=== PATIENT | male | born 1980 | race African-American/Black ===

== ENCOUNTER 2019-09-29 13:10 | Inpatient (IN) | payer OTHER ==
[2019-09-29 15:07] VITALS: BMI 26.4
--- NOTE | 2019-09-29 16:14 | BHS.RME ---
Substance Use & Tx History - Substance Use History Alcohol Substance amount: Vodka- 2 pints beer-8 25 oz cans Frequency of use: Daily Substance route: Oral Date of Last Use: 09/29/19 Cannabis Substance amount: $20 Frequency of use: Daily Substance route: Smoking Date of Last Use: 09/29/19 - Last Treatment Date of last treatment: 1st time here Physical/Psych/Mental Status - Behavior General Behavior: Decreased activity Eye Contact: Normal Other Behaviors: Mannerisms - Cooperativeness Cooperativeness: Cooperative - Thinking Thought Processes: Logical Thought content: Future oriented - Physical Health Problems Is patient presently having any pain?: Yes Does patient presently have any injuries (include location): No Does patient currently have a fever: No CIWA Nausea/Vomitin Muscle Tremors: 1-None Visible, but [place] Anxiety: 1-Mildly Anxious Agitation: 1-Slight > Activity Paroxysmal Sweats: 2 Orientation: 0-Oriented Tacttile Disturbances: 1-Very Mild Itch/Numbness Auditory Disturbances: 1-Very Mild Visual Disturbances: 1-Very Mild Sensitivity Headache: 2-Mild CIWA-Ar Total Score: 13
--- NOTE | 2019-09-29 16:20 | HP ---
CIWA Score Nausea/Vomitin Muscle Tremors: 1-None Visible, but [place] Anxiety: 1-Mildly Anxious Agitation: 1-Slight > Activity Paroxysmal Sweats: 2 Orientation: 0-Oriented Tacttile Disturbances: 1-Very Mild Itch/Numbness Auditory Disturbances: 1-Very Mild Visual Disturbances: 1-Very Mild Sensitivity Headache: 2-Mild CIWA-Ar Total Score: 13 - Admission Criteria OASAS Guidelines: Admission for Medically Managed Detox: Requires at least one of the followin. CIWA greater than 12 2. Seizures within the past 24 hours 3. Delirium tremens within the past 24 hours 4. Hallucinations within the past 24 hours 5. Acute intervention needed for co occurring medical disorder 6. Acute intervention needed for co occurring psychiatric disorder 7. Severe withdrawal that cannot be handled at a lower level of care (continued vomiting, continued diarrhea, abnormal vital signs) requiring intravenous medication and/or fluids 8. Patient presents the following: CIWA greater than 12 Admission Criteria Met: Admission criteria met Admission ROS [facility] Chief Complaint: I need detox from alcohol Allergies/Adverse Reactions: Allergies Allergy/AdvReac Type Severity Reaction Status Date / Time No Known Allergies Allergy Verified 09/29/19 16:37 History of Present Illness: 39 year old man, 1st time in detox here presents for alcohol detox, he reports treatment about 7 years ago. He reports blackouts, last episode was 2 nights ago, he denies seizures. 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 Loss EENT: reports: No Symptoms Reported Respiratory: reports: No Symptoms reported Cardiac: reports: Lightheadedness GI: reports: Diarrhea, Nausea, Poor Appetite, Poor Fluid Intake, Abdominal cramping : reports: No Symptoms Reported Musculoskeletal: reports: Back Pain, Muscle Pain, Muscle Weakness Integumentary: reports: Sweating Neuro: reports: Headache, Numbness, Weakness, Unsteady Gait, Other (left sided weakness) Endocrine: reports: No Symptoms Reported Hematology: reports: No Symptoms Reported Psychiatric: reports: No Sypmtoms Reported Other Systems: Reviewed and Negative Patient History - Patient Medical History Hx Anemia: No Hx Asthma: No Hx Chronic Obstructive Pulmonary Disease (COPD): No Hx Cancer: No Hx Cardiac Disorders: No Hx Congestive Heart Failure: No Hx Hypertension: Yes (on medication) Hx Hypercholesterolemia: Yes (") Hx Pacemaker: No HX Cerebrovascular Accident: Yes (9 years ago with residual left sided weakness) Hx Seizures: No Hx Dementia: No Hx Diabetes: No Hx Gastrointestinal Disorders: No Hx Liver Disease: No Hx Genitourinary Disorders: No Hx Sexually Transmitted Disorders: No Hx Renal Disease (ESRD): No Hx Thyroid Disease: No Hx Human Immunodeficiency Virus (HIV): No Hx Hepatitis C: No Hx Depression: No Hx Suicide Attempt: No Hx Bipolar Disorder: No Hx Schizophrenia: No - Patient Surgical History Past Surgical History: No - PPD History Previous Implant?: Yes Documented Results: Negative w/o proof Implanted On Prior [facility] Admission?: No PPD to be Administered?: Yes - Smoking Cessation Smoking history: Current every day smoker Have you smoked in the past 12 months: Yes Aproximately how many cigarettes per day: 8 Hx Chewing Tobacco Use: No Initiated information on smoking cessation: Yes 'Breaking Loose' booklet given: 09/29/19 - Substances abused Alcohol Substance route: Oral Frequency: Daily Amount used: VODKA- 2-3 PTS VODKA Age of first use: 15 Date of last use: 09/29/19 Admission Physical Exam BHS - Vital Signs Vital Signs: Vital Signs - 24 hr 09/29/19 15:05 Temperature 97.5 F L Pulse Rate 94 H Respiratory 18 Rate - Physical General Appearance: Yes: No Apparent Distress HEENTM: Yes: Hearing grossly Normal, Normocephalic, Normal Voice, INES Respiratory: Yes: Chest Non-Tender, Lungs Clear, Normal Breath Sounds, No Respiratory Distress, No Accessory Muscle Use Neck: Yes: No masses,lesions,Nodules, Supple Breast: Yes: Breast Exam Deferred Cardiology: Yes: Regular Rhythm, Regular Rate Abdominal: Yes: Normal Bowel Sounds, Non Tender, Soft Genitourinary: Yes: Within Normal Limits Back: Yes: Normal Inspection Musculoskeletal: Yes: Muscle Pain, Muscle weakness Extremities: Yes: Tremors (mild) Neurological: Yes: Normal Mood/Affect, Normal Response Integumentary: Yes: Normal Color Lymphatic: Yes: Within Normal Limits - Diagnostic (1) Alcohol dependence with withdrawal Current Visit: Yes Status: Acute Qualifiers: Complication of substance-induced condition: uncomplicated Qualified Code(s): F10.230 - Alcohol dependence with withdrawal, uncomplicated (2) Nicotine dependence Current Visit: Yes Status: Acute Qualifiers: Nicotine product type: cigarettes Substance use status: uncomplicated Qualified Code(s): F17.210 - Nicotine dependence, cigarettes, uncomplicated (3) Cerebrovascular accident (CVA) with left hemiparesis Current Visit: Yes Status: Chronic (4) Hypertension Current Visit: Yes Status: Acute Qualifiers: Hypertension type: essential hypertension Qualified Code(s): I10 - Essential (primary) hypertension Cleared for Admission [facility] - Detox or Rehab S Level of Care: Medically Managed () Detox Regimen/Protocol: Librium Claeared for Rehab Admission: No Breathalyzer - Breathalyzer Breathalyzer: 0.122 Urine Drug Screen - Test Device Lot number: [id number] Expiration date: 05/29/21 - Control Is test valid?: Yes - Results Drug screen NEGATIVE: No Urine drug screen results: THC-Marijuana Inpatient Rehab Admission - Rehab Decision to Admit Inpatient rehab admission?: No
[2019-09-29] MEDS ORDERED: IBUPROFEN 400 MG TABLET (FP) PO PRN (16:26)
[2019-09-29] MEDS ORDERED: MAG HYDROX/AL HYDROX/SIMETH 30 ML UNIT-DOSE CUP PO PRN (16:26)
[2019-09-29] MEDS ORDERED: ACETAMINOPHEN 325 MG TABLET (FP) PO PRN ×2 (16:26)
[2019-09-29] MEDS ORDERED: ONDANSETRON *ODT* 4 MG TABLET SL ONE (16:26)
[2019-09-29] MEDS ORDERED: MAGNESIUM CITRATE 300 ML BOTTLE PO PRN (16:26)
[2019-09-29] MEDS ORDERED: NICOTINE POLACRILEX 2 MG GUM BUC PRN (16:26)
[2019-09-29] MEDS ORDERED: BISMUTH SUBSALICYLATE 524 MG/30 ML UD PO PRN (16:26)
[2019-09-29] MEDS ORDERED: MAGNESIUM HYDROX 2400MG/30ML ORAL SUSPENSION 30 ML CUP PO PRN (16:26)
[2019-09-29] MEDS ORDERED: METHOCARBAMOL 500 MG TABLET PO PRN (16:26)
[2019-09-29] MEDS ORDERED: MENTHOL/PHENOL 1 EACH UD MM PRN (16:26)
[2019-09-29] MEDS: LOSARTAN POTASSIUM 50 MG TABLET (FP) PO SCH (17:26)
[2019-09-29] MEDS: hydrOXYzine PAMOATE 25 MG CAPSULE (FP) PO SCH ×2 (17:26→22:26)
[2019-09-29] MEDS: chlordiazePOXIDE HCL 10 MG CAPSULE PO PRN (17:27)
[2019-09-29] MEDS: MELATONIN 5 MG TABLETS PO SCH (22:26)
[2019-09-29] MEDS: ATORVASTATIN CA 40 MG TABLET (FP) PO SCH (22:26)
[2019-09-29] MEDS: THIAMINE HCL 100 MG TABLET (FP) PO SCH (22:26)
[2019-09-29] MEDS: chlordiazePOXIDE HCL 25 MG CAPSULE PO SCH (22:26)
[2019-09-30] MEDS: chlordiazePOXIDE HCL 25 MG CAPSULE PO SCH ×3 (05:47→22:10)
[2019-09-30] MEDS: hydrOXYzine PAMOATE 25 MG CAPSULE (FP) PO SCH ×2 (05:47→10:29)
[2019-09-30] MEDS ORDERED: cloNIDine HCL 0.1 MG TABLET PO ONE ×2 (07:42→21:30)
[2019-09-30] MEDS: ASPIRIN 81 MG CHEWABLE TABLETS PO SCH (10:28)
[2019-09-30] MEDS: NICOTINE 7 MG/24 HOURS TOPICAL PATCH TD SCH (10:29)
[2019-09-30] MEDS: LOSARTAN POTASSIUM 50 MG TABLET (FP) PO SCH (10:29)
[2019-09-30] MEDS: PRENATAL VITAMINS W/ FOLIC ACID TABLET (FP) PO SCH (10:29)
--- NOTE | 2019-09-30 10:52 | PN ---
S CIWA - CIWA Score Nausea/Vomitin-Mild Nausea/No Vomiting Muscle Tremors: 2 Anxiety: 2 Agitation: 1-Slight > Activity Paroxysmal Sweats: 2 Orientation: 0-Oriented Tacttile Disturbances: 0-None Auditory Disturbances: 0-None Visual Disturbances: 1-Very Mild Sensitivity Headache: 1-Very Mild CIWA-Ar Total Score: 10 S Progress Note (SOAP) Subjective: 39 years old male admitted on 09/29/19 for alcohol withdrawal sx management treating with librium detox regiment ambulating with cane slow steady from bed to bathroom medical history of hypertension Vital Signs - 24 hr 09/29/19 09/29/19 09/29/19 15:05 16:54 18:38 Temperature 97.5 F L 97.5 F L Pulse Rate 94 H 94 H 91 H Respiratory 18 18 Rate Blood Pressure 159/118 H 134/94 O2 Sat by Pulse Oximetry (%) 09/29/19 09/29/19 09/30/19 20:40 23:33 05:37 Temperature 97.1 F L 96.8 F L Pulse Rate 91 H 77 75 Respiratory 16 20 Rate Blood Pressure 151/100 142/100 150/120 H O2 Sat by Pulse 99 100 Oximetry (%) 09/30/19 09/30/19 08:03 08:32 Temperature 97.5 F L Pulse Rate 78 73 Respiratory 20 18 Rate Blood Pressure 177/121 H 155/120 H O2 Sat by Pulse Oximetry (%) bp elevation add hctz 25 mg po Objective: 09/30/19 10:58 alcohol withdrawal lab pending Assessment: 09/30/19 10:58 alcohol withdrawal Plan: librium regiment
[2019-09-30] MEDS ORDERED: LOSARTAN POTASSIUM 50 MG TABLET (FP) PO SCH (10:53)
[2019-09-30 11:32] LABS: HEMATOCRIT 47.5 % (35.4-49); HEMOGLOBIN 15.3 GM/dL (11.7-16.9); MCH 29.1 pg (25.7-33.7); MCHC 32.2 g/dl (32.0-35.9); MEAN CELL VOLUME 90.3 fl (80-96); PLATELET COUNT 142 K/MM3 (134-434); RBC 5.26 M/mm3 (4.00-5.60); RDW 14.5 % (11.9-15.9); WHITE BLOOD COUNT 3.8 K/mm3 (4.0-10.0)
[2019-09-30 11:33] LABS: ALBUMIN 3.5 g/dl (3.4-5.0); BILIRUBIN,TOTAL 0.3 mg/dL (0.2-1); BLOOD UREA NITROGEN 17.5 mg/dL (7-18); CALCIUM 9.1 mg/dL (8.5-10.1); CREATININE 1.5 mg/dL (0.55-1.3); POTASSIUM 3.9 mmol/L (3.5-5.1); TOT PROT 6.9 g/dl (6.4-8.2)
[2019-09-30] MEDS: HYDROCHLOROTHIAZIDE 25 MG TABLET (FP) PO SCH (12:11)
[2019-09-30] MEDS ORDERED: hydrOXYzine PAMOATE 25 MG CAPSULE (FP) PO PRN (13:35)
[2019-09-30] MEDS: THIAMINE HCL 100 MG TABLET (FP) PO SCH (22:08)
[2019-09-30] MEDS: ATORVASTATIN CA 40 MG TABLET (FP) PO SCH (22:10)
[2019-09-30] MEDS: MELATONIN 5 MG TABLETS PO SCH (22:10)
[2019-10-01] MEDS: chlordiazePOXIDE 5 MG CAPSULE PO SCH ×3 (05:51→21:10)
[2019-10-01] MEDS ORDERED: LISINOPRIL 20 MG TABLET (FP) PO ONE (07:15)
--- NOTE | 2019-10-01 07:16 | PN ---
[facility] Progress Note Note: SEEN FOR UNCONTROLLED BP. CLIENT IS ASYMPTOMATIC. DENIES SOB, C.P., WEAKNESS, NUMBNESS, VISUAL DISTURBANCES, HEADACHE. CLIENT REPORTS HE TAKES LOSARTAN AT HOME BUT DOES NOT RECALL DOSE. STATES PRIOR TO ADMISSION IS HAS BEEN A WEEK SINCE HE TOOK THE MEDICATION BECAUSE HE RAN OUT. REPORTS COMPLIANCE AND REPORTS B/P HAS BEEN FINE. LAST SEEN AT HIS DOCTORS OFFICE 3 WEEKS AGO AND WAS TOLD HIS BP WAS GOOD. CLIENT SEEN IN BED LYING COMFORTABLY. A/O X3 NAD, NO ACUTE WITHDRAWAL SX'S NOTED Vital Signs (72 hours) 09/29/19 09/29/19 09/29/19 15:05 16:54 18:38 Temperature 97.5 F L 97.5 F L Pulse Rate 94 H 94 H 91 H Respiratory 18 18 Rate Blood Pressure 159/118 H 134/94 O2 Sat by Pulse Oximetry (%) 09/29/19 09/29/19 09/30/19 20:40 23:33 05:37 Temperature 97.1 F L 96.8 F L Pulse Rate 91 H 77 75 Respiratory 16 20 Rate Blood Pressure 151/100 142/100 150/120 H O2 Sat by Pulse 99 100 Oximetry (%) 09/30/19 09/30/19 09/30/19 08:03 08:32 12:10 Temperature 97.5 F L 96.9 F L Pulse Rate 78 73 71 Respiratory 20 18 18 Rate Blood Pressure 177/121 H 155/120 H 149/94 O2 Sat by Pulse 100 Oximetry (%) 09/30/19 09/30/19 09/30/19 16:44 20:53 23:09 Temperature 97.1 F L 97.5 F L Pulse Rate 72 84 81 Respiratory 18 16 16 Rate Blood Pressure 148/99 155/113 H 149/104 H O2 Sat by Pulse 96 Oximetry (%) VS NOTED. PATIENT HAS RECEIVED SEVERAL DOSES OF CLONIDINE WITH MINIMAL RESPONSE. EKG NOTED WITH LVH W/ REPOLARIZATION ABN, NSR, L ATRIAL ENLARGEMENT, PROLONGED QT- 422/507 P- 39 Y.O. AA MALE ADMITTED TO DETOX ON 09/29/19 FOR ALCOHOL DETOX. ON LIBRIUM TAPER, PMHX, HTN, OLD CVA WITH LEFT SIDED HEMIPARESIS REPEAT EKG- NSR, LEFT ATRIAL ENLARGEMENT, INCOMPLETE [id number] BPM, LVH, MARKED T WAVE ABN, CONSIDER INFEROLATERAL ISCHEMIA, PROLONGED QT/QTC 462/505 CASE D/W DR.LIU- AZEEM GONZALES. WILL TRANSFER CLIENT FOR CHANGES IN EKG
--- NOTE | 2019-10-01 09:24 | EKG ---
Test Reason : Blood Pressure : / mmHG Vent. Rate : 072 BPM Atrial Rate : 072 BPM P-R Int : 166 ms QRS Dur : 112 ms QT Int : 462 ms P-R-T Axes : 046 027 220 degrees QTc Int : 505 ms NORMAL SINUS RHYTHM POSSIBLE LEFT ATRIAL ENLARGEMENT LEFT VENTRICULAR HYPERTROPHY with repolarization abnormality, MARKED T-WAVE ABNORMALITY, CONSIDER INFEROLATERAL ISCHEMIA PROLONGED QT ABNORMAL ECG WHEN COMPARED WITH ECG OF 29-SEP-2019 17:30, NO SIGNIFICANT CHANGE WAS FOUND Confirmed by Neeru Olivo ([id number]) on 10/01/2019 9:24:16 AM Referred By: Confirmed By:Neeru Olivo
--- NOTE | 2019-10-01 09:25 | EKG ---
Test Reason : Blood Pressure : / mmHG Vent. Rate : 087 BPM Atrial Rate : 087 BPM P-R Int : 168 ms QRS Dur : 110 ms QT Int : 422 ms P-R-T Axes : 045 026 225 degrees QTc Int : 507 ms NORMAL SINUS RHYTHM LEFT ATRIAL ENLARGEMENT LEFT VENTRICULAR HYPERTROPHY WITH REPOLARIZATION ABNORMALITY Consider inferolateral ischemia PROLONGED QT ABNORMAL ECG NO PREVIOUS ECGS AVAILABLE Confirmed by Neeru Olivo ([id number]) on 10/01/2019 9:25:37 AM Referred By: Confirmed By:Neeru Olivo
[2019-10-01] MEDS: HYDROCHLOROTHIAZIDE 25 MG TABLET (FP) PO SCH (09:57)
[2019-10-01] MEDS: NICOTINE 7 MG/24 HOURS TOPICAL PATCH TD SCH (09:57)
[2019-10-01] MEDS: ASPIRIN 81 MG CHEWABLE TABLETS PO SCH (09:57)
[2019-10-01] MEDS: PRENATAL VITAMINS W/ FOLIC ACID TABLET (FP) PO SCH (09:58)
--- NOTE | 2019-10-01 12:24 | PN ---
S Progress Note Note: 39 years old male admitted on 09/29/19 for alcohol withdrawal sx management treating with librium detox regiment transferred to ER for ekg change review ER electronic record Mr hayes is possible returned to [facility] today due to negative troponin
[2019-10-01] MEDS ORDERED: METOPROLOL TARTRATE 50 MG TABLET (FP) PO ONE ×2 (15:47→17:37)
[2019-10-01] MEDS: chlordiazePOXIDE HCL 10 MG CAPSULE PO PRN (17:26)
--- NOTE | 2019-10-01 17:36 | PN ---
S Progress Note Note: called by nursing for elevated BP Vital Signs - 24 hr 09/30/19 09/30/19 10/01/19 20:53 23:09 07:32 Temperature 97.5 F L 97.1 F L Pulse Rate 84 81 82 Respiratory 16 16 18 Rate Blood Pressure 155/113 H 149/104 H 147/117 H O2 Sat by Pulse 96 100 Oximetry (%) 10/01/19 10/01/19 12:45 16:17 Temperature 96.9 F L 97.1 F L Pulse Rate 87 90 Respiratory 18 18 Rate Blood Pressure 152/118 H 165/115 H O2 Sat by Pulse 99 99 Oximetry (%) P : Metoprolol 25 mg once .
[2019-10-01] MEDS: THIAMINE HCL 100 MG TABLET (FP) PO SCH (21:09)
[2019-10-01] MEDS: METOPROLOL TARTRATE 50 MG TABLET (FP) PO SCH (21:09)
[2019-10-01] MEDS: ATORVASTATIN CA 40 MG TABLET (FP) PO SCH (21:09)
[2019-10-01] MEDS: MELATONIN 5 MG TABLETS PO SCH (21:09)
[2019-10-02] MEDS ORDERED: chlordiazePOXIDE HCL 10 MG CAPSULE PO PRN
[2019-10-02] MEDS: chlordiazePOXIDE HCL 10 MG CAPSULE PO SCH ×3 (05:33→21:06)
[2019-10-02] MEDS: LOSARTAN POTASSIUM 50 MG TABLET (FP) PO SCH (07:33)
--- NOTE | 2019-10-02 08:28 | PN ---
[facility] Progress Note Note: Patient's blood pressure is still elevated. Patient was evaluated in E.R. for elevated blood pressure. He is asymptomatic and denies headache or any discomfort. Vital Signs - 24 hr 10/01/19 10/01/19 10/01/19 12:45 16:17 20:18 Temperature 96.9 F L 97.1 F L 97.3 F L Pulse Rate 87 90 85 Respiratory 18 18 18 Rate Blood Pressure 152/118 H 165/115 H 172/117 H O2 Sat by Pulse 99 99 100 Oximetry (%) 10/01/19 10/02/19 22:38 06:16 Temperature 97.7 F 96.9 F L Pulse Rate 76 70 Respiratory 18 18 Rate Blood Pressure 156/107 H 144/100 O2 Sat by Pulse 100 Oximetry (%) Action: Losartan Pottasium 100mg tablet oral changed from 10.00AM to 06.00AM Continue to monitor blood pressure
[2019-10-02] MEDS: METOPROLOL TARTRATE 50 MG TABLET (FP) PO SCH ×2 (10:38→21:05)
[2019-10-02] MEDS: PRENATAL VITAMINS W/ FOLIC ACID TABLET (FP) PO SCH (10:38)
[2019-10-02] MEDS: HYDROCHLOROTHIAZIDE 25 MG TABLET (FP) PO SCH (10:38)
[2019-10-02] MEDS: ASPIRIN 81 MG CHEWABLE TABLETS PO SCH (10:38)
[2019-10-02] MEDS: NICOTINE 7 MG/24 HOURS TOPICAL PATCH TD SCH (10:41)
--- NOTE | 2019-10-02 13:49 | PN ---
S CIWA - CIWA Score Nausea/Vomitin-Mild Nausea/No Vomiting Muscle Tremors: 2 Anxiety: 2 Agitation: 1-Slight > Activity Paroxysmal Sweats: 1-Minimal Palms Moist Orientation: 0-Oriented Tacttile Disturbances: 1-Very Mild Itch/Numbness Auditory Disturbances: 0-None Visual Disturbances: 0-None Headache: 0-None Present CIWA-Ar Total Score: 8
--- NOTE | 2019-10-02 13:54 | PN ---
S CIWA - CIWA Score Nausea/Vomitin-No Nausea/No Vomiting Muscle Tremors: 2 Anxiety: 2 Agitation: 0-Normal Activity Paroxysmal Sweats: No Perspiration Orientation: 0-Oriented Tacttile Disturbances: 0-None Auditory Disturbances: 0-None Visual Disturbances: 2-Mild Sensitivity Headache: 0-None Present CIWA-Ar Total Score: 6 BHS Progress Note (SOAP) Subjective: 39 years old male admitted on 09/30/19 for alcohol withdrawal sx management treating with librium detox regiment states has long history of hypertension stroke 2010 left arm weakness Vital Signs - 24 hr 10/01/19 10/01/19 10/01/19 16:17 20:18 22:38 Temperature 97.1 F L 97.3 F L 97.7 F Pulse Rate 90 85 76 Respiratory 18 18 18 Rate Blood Pressure 165/115 H 172/117 H 156/107 H O2 Sat by Pulse 99 100 Oximetry (%) 10/02/19 10/02/19 10/02/19 06:16 09:02 12:44 Temperature 96.9 F L 97.3 F L 97.3 F L Pulse Rate 70 70 73 Respiratory 18 18 18 Rate Blood Pressure 144/100 148/105 H 135/82 O2 Sat by Pulse 100 100 100 Oximetry (%) current antihypertensive medications are losartan hctz and metoprolol mr hayes prefers to go to [facility] for continue bp monitoring Objective: 10/02/19 13:53 Laboratory Tests 09/29/19 09/30/19 09/30/19 17:00 06:50 06:50 WBC RBC Hgb Hct MCV MCH MCHC RDW Plt Count MPV Sodium Potassium Chloride Carbon Dioxide Anion Gap BUN Creatinine Est GFR (CKD-EPI)AfAm Est GFR (CKD-EPI)NonAf Random Glucose Calcium Total Bilirubin AST ALT Alkaline Phosphatase Total Protein Albumin Syphilis Serology Non-reactive COVID-19 ([facility]) Not detected HIV Ag/Ab Combo Qual Negative 09/30/19 09/30/19 06:50 06:50 WBC 3.8 L RBC 5.26 Hgb 15.3 Hct 47.5 MCV 90.3 MCH 29.1 MCHC 32.2 RDW 14.5 Plt Count 142 MPV 11.0 Sodium 143 Potassium 3.9 Chloride 108 H Carbon Dioxide 31 Anion Gap 4 L BUN 17.5 Creatinine 1.5 H Est GFR (CKD-EPI)AfAm 66.54 Est GFR (CKD-EPI)NonAf 57.41 Random Glucose 91 Calcium 9.1 Total Bilirubin 0.3 AST 22 ALT 25 Alkaline Phosphatase 61 Total Protein 6.9 Albumin 3.5 Syphilis Serology COVID-19 ([facility]) HIV Ag/Ab Combo Qual lab noted Assessment: 10/02/19 13:53 alcohol withdrawal Plan: librium regiment
[2019-10-02] MEDS: MELATONIN 5 MG TABLETS PO SCH (21:04)
[2019-10-02] MEDS: ATORVASTATIN CA 40 MG TABLET (FP) PO SCH (21:05)
[2019-10-02] MEDS: THIAMINE HCL 100 MG TABLET (FP) PO SCH (21:05)
[2019-10-03] MEDS ORDERED: chlordiazePOXIDE HCL 10 MG CAPSULE PO ONE (05:00)
[2019-10-03] MEDS: LOSARTAN POTASSIUM 50 MG TABLET (FP) PO SCH (05:38)
[2019-10-03 09:12] VITALS: BP 152/108; PULSE 75; TEMP 97.2
[2019-10-03] MEDS: ASPIRIN 81 MG CHEWABLE TABLETS PO SCH (09:14)
[2019-10-03] MEDS: METOPROLOL TARTRATE 50 MG TABLET (FP) PO SCH (09:14)
[2019-10-03] MEDS: PRENATAL VITAMINS W/ FOLIC ACID TABLET (FP) PO SCH (09:14)
[2019-10-03] MEDS: HYDROCHLOROTHIAZIDE 25 MG TABLET (FP) PO SCH (09:15)
[2019-10-03] MEDS: NICOTINE 7 MG/24 HOURS TOPICAL PATCH TD SCH (09:34)
--- NOTE | 2019-10-03 10:44 | DS ---
[facility] Detox Discharge Summary Admission Date: 09/29/19 Discharge Date: 10/03/19 - History Present History: Alcohol Dependence Additional Comments: 39 years old male admitted on 09/29/19 for alcohol withdrawal sx management treated with librium detox regiment medical history of hypertension related stroke 2009 resulted of left arm weakness father of "heart attack" age around 54 mr hayes was sent to ER for hypertension returned to detox bp managed by losartan hctz and metoprolol mr hayes has completed the librium regiment and is tolerated well General Appearance: Yes: No Apparent Distress HEENTM: Yes: Hearing grossly Normal, Normocephalic, Normal Voice, INES Respiratory: Yes: Chest Non-Tender, Lungs Clear, Normal Breath Sounds, No Respiratory Distress, No Accessory Muscle Use Neck: Yes: No masses,lesions,Nodules, Supple Breast: Yes: Breast Exam Deferred Cardiology: Yes: Regular Rhythm, Regular Rate Abdominal: Yes: Normal Bowel Sounds, Non Tender, Soft Genitourinary: Yes: Within Normal Limits Back: Yes: Normal Inspection Musculoskeletal: Yes: Muscle Pain, Muscle weakness Extremities: Yes: Tremors (mild) Neurological: Yes: Normal Mood/Affect, Normal Response Integumentary: Yes: Normal Color Lymphatic: Yes: Within Normal Limits Pertinent Past History: time for discharge 45 minutes treatment team met with mr hayes to discuss the risks of bp elevation and benefits of antihypertensive medications compliance mr hayes received losartan around 0530am around 0850 am mr hayes bp 152/108 aroound 0915 mr hayes received hctz and metoprolol encourage repeat bp mr hayes states that he will check his blood pressure at home or at [facility] or at the pharmacy - Physical Exam Results Vital Signs: Vital Signs Temperature 97.2 F L 10/03/19 08:32 Pulse Rate 75 10/03/19 08:32 Respiratory Rate 18 10/03/19 08:32 Blood Pressure 152/108 H 10/03/19 08:32 O2 Sat by Pulse Oximetry (%) 100 10/03/19 08:32 Pertinent Admission Physical Exam Findings: alcohol withdrawal Vital Signs - 24 hr 10/02/19 10/02/19 10/02/19 12:44 16:29 20:45 Temperature 97.3 F L 96.9 F L 96.8 F L Pulse Rate 73 76 80 Respiratory 18 18 19 Rate Blood Pressure 135/82 147/106 H 166/118 H O2 Sat by Pulse 100 100 Oximetry (%) 10/02/19 10/03/19 10/03/19 23:15 05:45 08:32 Temperature 97.1 F L 97.2 F L Pulse Rate 72 71 75 Respiratory 18 20 18 Rate Blood Pressure 142/93 118/87 152/108 H O2 Sat by Pulse 100 100 Oximetry (%) Laboratory Tests 09/29/19 09/30/19 09/30/19 17:00 06:50 06:50 WBC RBC Hgb Hct MCV MCH MCHC RDW Plt Count MPV Sodium Potassium Chloride Carbon Dioxide Anion Gap BUN Creatinine Est GFR (CKD-EPI)AfAm Est GFR (CKD-EPI)NonAf Random Glucose Calcium Total Bilirubin AST ALT Alkaline Phosphatase Total Protein Albumin Syphilis Serology Non-reactive COVID-19 ([facility]) Not detected HIV Ag/Ab Combo Qual Negative 09/30/19 09/30/19 06:50 06:50 WBC 3.8 L RBC 5.26 Hgb 15.3 Hct 47.5 MCV 90.3 MCH 29.1 MCHC 32.2 RDW 14.5 Plt Count 142 MPV 11.0 Sodium 143 Potassium 3.9 Chloride 108 H Carbon Dioxide 31 Anion Gap 4 L BUN 17.5 Creatinine 1.5 H Est GFR (CKD-EPI)AfAm 66.54 Est GFR (CKD-EPI)NonAf 57.41 Random Glucose 91 Calcium 9.1 Total Bilirubin 0.3 AST 22 ALT 25 Alkaline Phosphatase 61 Total Protein 6.9 Albumin 3.5 Syphilis Serology COVID-19 ([facility]) HIV Ag/Ab Combo Qual mr hayes has appointment on 10/04/19 10 am with [facility] encourage freddy to [facility] solution maker medications from preferred pharmacy and bp monitoring daily - Treatment Hospital Course: Detox Protocol Followed, Detoxed Safely, Responded well, Discharged Condition Good, Rehab Referral Accepted Patient has Accepted a Rehab Referral to: [facility] - Medication Discharge Medications: Ambulatory Orders Aspirin [ASA -] 81 mg PO DAILY 09/29/19 Aspirin [ASA -] 81 mg PO DAILY #30 tab.chew 10/03/19 Atorvastatin Ca [Lipitor] 40 mg PO HS #30 tablet 10/03/19 Hydrochlorothiazide [Hctz -] 25 mg PO DAILY #30 tablet 10/03/19 Losartan Potassium 100 mg PO DAILY #30 tablet 10/03/19 Losartan Potassium [Cozaar -] 100 mg PO DAILY@0600 #30 tablet 10/03/19 Metoprolol Tartrate [Lopressor -] 50 mg PO BID #60 tablet 10/03/19 - Diagnosis (1) Left arm weakness Status: Chronic (2) Alcohol dependence with withdrawal Status: Acute Qualifiers: Complication of substance-induced condition: uncomplicated Qualified Code(s): F10.230 - Alcohol dependence with withdrawal, uncomplicated (3) Hypertension Status: Chronic Qualifiers: Hypertension type: essential hypertension Qualified Code(s): I10 - Essential (primary) hypertension (4) Nicotine dependence Status: Acute Qualifiers: Nicotine product type: cigarettes Substance use status: in withdrawal Qualified Code(s): F17.213 - Nicotine dependence, cigarettes, with withdrawal (5) Substance induced mood disorder Status: Suspected (6) Hypercholesterolemia Status: Chronic - AMA Did Patient Leave Against Medical Advice: No CIWA Score - CIWA Score Nausea/Vomitin-No Nausea/No Vomiting Muscle Tremors: 2 Anxiety: 1-Mildly Anxious Agitation: 0-Normal Activity Paroxysmal Sweats: No Perspiration Orientation: 0-Oriented Tacttile Disturbances: 0-None Auditory Disturbances: 0-None Visual Disturbances: 0-None Headache: 0-None Present CIWA-Ar Total Score: 3
== END 2019-10-03 09:22 | disposition home or self-care (01) | DRG 897 ==
LOC: YASAS 13:10 → Y3N 16:34
PROVIDERS: ADMIT Allergy & Immunology; ATTEND Allergy & Immunology
PROC: HZ2ZZZZ Detoxification Services for Substance Abuse Treatment (ICD-10-PCS; principal; 2019-09-29)
DX: F10.230 Alcohol dependence with withdrawal, uncomplicated (principal); I69.354 Hemiplegia and hemiparesis following cerebral infarction affecting left non-dominant side; F17.213 Nicotine dependence, cigarettes, with withdrawal; F19.24 Other psychoactive substance dependence with psychoactive substance-induced mood disorder; I10 Essential (primary) hypertension; E78.00 Pure hypercholesterolemia, unspecified; I45.81 Long QT syndrome; I44.7 Left bundle-branch block, unspecified; I51.7 Cardiomegaly
CPT/HCPCS: 36415; 71046-TC-FY; 80053; 84484; 85025; 85027; 86780; 87389; 93005; 93010; 99285-25; J0735; Q0162; U0003

== ENCOUNTER 2020-07-17 15:17 | Inpatient (IN) | payer OTHER ==
[2020-07-17 16:07] VITALS: BMI 26.6
[2020-07-17] MEDS ORDERED: chlordiazePOXIDE HCL 25 MG CAPSULE PO SCH (17:00)
[2020-07-17] MEDS ORDERED: ACETAMINOPHEN 325 MG TABLET (FP) PO PRN ×2 (17:06)
[2020-07-17] MEDS ORDERED: chlordiazePOXIDE HCL 25 MG CAPSULE PO PRN (17:06)
[2020-07-17] MEDS ORDERED: MAGNESIUM CITRATE 300 ML BOTTLE PO PRN (17:06)
[2020-07-17] MEDS ORDERED: MAG HYDROX/AL HYDROX/SIMETH 30 ML UNIT-DOSE CUP PO PRN (17:06)
[2020-07-17] MEDS ORDERED: METHOCARBAMOL 500 MG TABLET PO PRN (17:06)
[2020-07-17] MEDS ORDERED: IBUPROFEN 400 MG TABLET (FP) PO PRN (17:06)
[2020-07-17] MEDS ORDERED: MENTHOL/PHENOL 1 EACH UD MM PRN (17:06)
[2020-07-17] MEDS ORDERED: ONDANSETRON *ODT* 4 MG TABLET SL PRN (17:06)
[2020-07-17] MEDS ORDERED: MAGNESIUM HYDROX 2400MG/30ML ORAL SUSPENSION 30 ML CUP PO PRN (17:06)
[2020-07-17] MEDS ORDERED: BISMUTH SUBSALICYLATE 524 MG/30 ML PO PRN (17:06)
[2020-07-17] MEDS ORDERED: LORazepam 1 MG TABLET PO PRN (18:49)
[2020-07-17] MEDS: hydrOXYzine PAMOATE 25 MG CAPSULE (FP) PO SCH ×2 (19:01→22:32)
[2020-07-17] MEDS: MELATONIN 5 MG TABLETS PO SCH (22:32)
[2020-07-17] MEDS: THIAMINE HCL 100 MG TABLET (FP) PO SCH (22:32)
[2020-07-17] MEDS: LORazepam 2 MG TABLET PO SCH (22:33)
[2020-07-18] MEDS: hydrOXYzine PAMOATE 25 MG CAPSULE (FP) PO SCH ×5 (06:25→22:24)
[2020-07-18] MEDS: LORazepam 2 MG TABLET PO SCH ×4 (06:25→22:25)
[2020-07-18] MEDS ORDERED: cloNIDine HCL 0.1 MG TABLET PO ONE (07:45)
[2020-07-18] MEDS: ASPIRIN 81 MG CHEWABLE TABLETS PO SCH (10:28)
[2020-07-18] MEDS: PRENATAL VITAMINS W/ FOLIC ACID TABLET (FP) PO SCH (10:28)
[2020-07-18] MEDS: amLODIPine BESYLATE 10 MG TABLET (FP) PO SCH (10:28)
[2020-07-18 12:17] LABS: CALCIUM 9.2 mg/dL (8.5-10.1); HEMATOCRIT 49.3 % (35.4-49); HEMOGLOBIN 16.4 GM/dL (11.7-16.9); MCHC 33.3 g/dl (32.0-35.9); MEAN CELL VOLUME 90.1 fl (80-96); MEAN PLT VOLUME 9.8 fl (7.5-11.1); PLATELET COUNT 183 K/MM3 (134-434); RBC 5.47 M/mm3 (4.00-5.60); RDW 14.2 % (11.9-15.9); WHITE BLOOD COUNT 3.8 K/mm3 (4.0-10.0)
[2020-07-18 12:18] LABS: ALBUMIN 3.9 g/dl (3.4-5.0); BLOOD UREA NITROGEN 15.9 mg/dL (7-18)
[2020-07-18 12:21] LABS: CREATININE 1.1 mg/dL (0.55-1.3)
[2020-07-18 12:22] LABS: BILIRUBIN,TOTAL 0.5 mg/dL (0.2-1); TOT PROT 7.6 g/dl (6.4-8.2)
[2020-07-18] MEDS: NICOTINE POLACRILEX 2 MG GUM BUC PRN ×2 (17:44→22:27)
[2020-07-18] MEDS ORDERED: ATORVASTATIN CA 40 MG TABLET (FP) PO SCH (22:00)
[2020-07-18] MEDS: MELATONIN 5 MG TABLETS PO SCH (22:24)
[2020-07-18] MEDS: THIAMINE HCL 100 MG TABLET (FP) PO SCH (22:24)
[2020-07-19] MEDS ORDERED: chlordiazePOXIDE HCL 25 MG CAPSULE PO SCH (05:00)
[2020-07-19] MEDS: hydrOXYzine PAMOATE 25 MG CAPSULE (FP) PO SCH ×2 (05:35→10:27)
[2020-07-19] MEDS: LORazepam 1 MG TABLET PO SCH ×2 (05:35→10:26)
[2020-07-19 07:27] VITALS: TEMP 97
[2020-07-19] MEDS: PRENATAL VITAMINS W/ FOLIC ACID TABLET (FP) PO SCH (10:25)
[2020-07-19] MEDS: NICOTINE POLACRILEX 2 MG GUM BUC PRN (10:26)
[2020-07-19] MEDS: ASPIRIN 81 MG CHEWABLE TABLETS PO SCH (10:26)
[2020-07-19] MEDS: amLODIPine BESYLATE 10 MG TABLET (FP) PO SCH (10:27)
[2020-07-19 11:04] VITALS: BP 179/89; PULSE 64
[2020-07-20] MEDS ORDERED: LORazepam 0.5 MG TABLET PO PRN
[2020-07-20] MEDS ORDERED: chlordiazePOXIDE HCL 10 MG CAPSULE PO PRN
[2020-07-20] MEDS ORDERED: LORazepam 0.5 MG TABLET PO SCH (05:00)
[2020-07-20] MEDS ORDERED: chlordiazePOXIDE HCL 10 MG CAPSULE PO SCH (05:00)
[2020-07-21] MEDS ORDERED: LORazepam 0.5 MG TABLET PO ONE (05:00)
[2020-07-21] MEDS ORDERED: chlordiazePOXIDE HCL 10 MG CAPSULE PO SCH (05:00)
[2020-07-22] MEDS ORDERED: chlordiazePOXIDE HCL 10 MG CAPSULE PO ONE (05:00)
== END 2020-07-19 12:00 | disposition left against medical advice (07) | DRG 894 ==
LOC: YASAS 15:17 → Y6N 18:19
PROVIDERS: ADMIT Allergy & Immunology; ATTEND Allergy & Immunology
PROC: HZ2ZZZZ Detoxification Services for Substance Abuse Treatment (ICD-10-PCS; principal; 2020-07-17)
DX: F10.230 Alcohol dependence with withdrawal, uncomplicated (principal); I69.854 Hemiplegia and hemiparesis following other cerebrovascular disease affecting left non-dominant side; F12.20 Cannabis dependence, uncomplicated; F17.210 Nicotine dependence, cigarettes, uncomplicated; I11.0 Hypertensive heart disease with heart failure; I50.9 Heart failure, unspecified
CPT/HCPCS: 36415; 80053; 85027; 86780; 93005; 93010; C9803; J0735; U0003; U0005

== ENCOUNTER 2020-08-21 19:36 | Inpatient (IN) | payer OTHER ==
[2020-08-21] MEDS ORDERED: MAGNESIUM CITRATE 300 ML BOTTLE PO PRN (21:57)
[2020-08-21] MEDS ORDERED: MAG HYDROX/AL HYDROX/SIMETH 30 ML UNIT-DOSE CUP PO PRN (21:57)
[2020-08-21] MEDS ORDERED: P-EPHED 60MG/TRIPROLIDI 2.5MG TABLET PO PRN (21:57)
[2020-08-21] MEDS ORDERED: ONDANSETRON *ODT* 4 MG TABLET SL PRN (21:57)
[2020-08-21] MEDS ORDERED: ACETAMINOPHEN 325 MG TABLET (FP) PO PRN ×2 (21:57)
[2020-08-21] MEDS ORDERED: MENTHOL/PHENOL 1 EACH UD MM PRN (21:57)
[2020-08-21] MEDS ORDERED: hydrOXYzine PAMOATE 25 MG CAPSULE (FP) PO PRN (21:57)
[2020-08-21] MEDS ORDERED: DICYCLOMINE HCL 10 MG CAPSULE PO PRN (21:57)
[2020-08-21] MEDS ORDERED: METHOCARBAMOL 500 MG TABLET PO PRN (21:57)
[2020-08-21] MEDS ORDERED: MAGNESIUM HYDROX 2400MG/30ML ORAL SUSPENSION 30 ML CUP PO PRN (21:57)
[2020-08-21] MEDS ORDERED: guaiFENesin 200 MG/10 ML 10 ML UNIT-DOSE CUPS PO PRN (21:57)
[2020-08-21] MEDS ORDERED: BISMUTH SUBSALICYLATE 524 MG/30 ML PO PRN (21:57)
[2020-08-21] MEDS ORDERED: IBUPROFEN 400 MG TABLET (FP) PO PRN (21:57)
[2020-08-21] MEDS ORDERED: NICOTINE POLACRILEX 2 MG GUM BUC PRN (21:57)
[2020-08-21 22:45] VITALS: BMI 24.7
[2020-08-22] MEDS: THIAMINE HCL 100 MG TABLET (FP) PO SCH ×2 (00:17→22:20)
[2020-08-22] MEDS: MELATONIN 5 MG TABLETS PO SCH ×2 (00:17→22:20)
[2020-08-22] MEDS ORDERED: amLODIPine BESYLATE 5 MG TABLET (FP) ONE (05:53)
[2020-08-22] MEDS ORDERED: cloNIDine HCL 0.1 MG TABLET PO ONE ×2 (05:57→10:30)
[2020-08-22] MEDS ORDERED: cloNIDine HCL 0.1 MG TABLET ONE (06:05)
[2020-08-22] MEDS: amLODIPine BESYLATE 10 MG TABLET (FP) PO SCH ×2 (07:20→10:59)
[2020-08-22] MEDS ORDERED: diazePAM 5 MG TABLET ONE (08:14)
[2020-08-22] MEDS: diazePAM 5 MG TABLET PO SCH ×4 (08:17→22:20)
[2020-08-22 10:03] LABS: HEMATOCRIT 46.3 % (35.4-49); HEMOGLOBIN 15.5 GM/dL (11.7-16.9); MCH 29.6 pg (25.7-33.7); MCHC 33.5 g/dl (32.0-35.9); MEAN CELL VOLUME 88.4 fl (80-96); MEAN PLT VOLUME 9.2 fl (7.5-11.1); PLATELET COUNT 147 10^3/uL (134-434); RBC 5.24 M/mm3 (4.00-5.60); RDW 14.4 % (11.9-15.9); WHITE BLOOD COUNT 2.9 K/mm3 (4.0-10.0)
[2020-08-22 10:09] LABS: BLOOD UREA NITROGEN 6.1 mg/dL (7-18)
[2020-08-22 10:10] LABS: ALBUMIN 4.1 g/dl (3.4-5.0)
[2020-08-22 10:14] LABS: BILIRUBIN,TOTAL 0.8 mg/dL (0.2-1); TOT PROT 7.9 g/dl (6.4-8.2)
[2020-08-22 10:58] LABS: HIV INTERPRETATION NEGATIVE (NEGATIVE)
[2020-08-22] MEDS: ASPIRIN 81 MG CHEWABLE TABLETS PO SCH (10:59)
[2020-08-22] MEDS: PRENATAL VITAMINS W/ FOLIC ACID TABLET (FP) PO SCH (11:06)
[2020-08-22] MEDS: NICOTINE 14 MG/24 HOURS TOPICAL PATCH TD SCH (11:07)
[2020-08-22] MEDS ORDERED: ATORVASTATIN CA 40 MG TABLET (FP) PO SCH (22:00)
[2020-08-23] MEDS: diazePAM 5 MG TABLET PO SCH ×3 (05:19→22:08)
[2020-08-23] MEDS: amLODIPine BESYLATE 10 MG TABLET (FP) PO SCH (09:54)
[2020-08-23] MEDS: NICOTINE 14 MG/24 HOURS TOPICAL PATCH TD SCH (09:54)
[2020-08-23] MEDS: ASPIRIN 81 MG CHEWABLE TABLETS PO SCH (09:54)
[2020-08-23] MEDS: PRENATAL VITAMINS W/ FOLIC ACID TABLET (FP) PO SCH (09:55)
[2020-08-23] MEDS: SACUBITRIL/VALSARTAN 24 MG-26 MG TABLET PO SCH (13:48)
[2020-08-23] MEDS: CARVEDILOL 3.125 MG TABLET (FP) PO SCH ×2 (13:48→22:08)
[2020-08-23] MEDS: ROSUVASTATIN CA 20 MG TABLET (FP) PO SCH (22:08)
[2020-08-23] MEDS: THIAMINE HCL 100 MG TABLET (FP) PO SCH (22:08)
[2020-08-23] MEDS: MELATONIN 5 MG TABLETS PO SCH (22:09)
[2020-08-24] MEDS: diazePAM 5 MG TABLET PO SCH ×2 (05:34→17:20)
[2020-08-24] MEDS: ASPIRIN 81 MG CHEWABLE TABLETS PO SCH (09:14)
[2020-08-24] MEDS: NICOTINE 14 MG/24 HOURS TOPICAL PATCH TD SCH (09:14)
[2020-08-24] MEDS: CARVEDILOL 3.125 MG TABLET (FP) PO SCH ×2 (09:14→21:00)
[2020-08-24] MEDS: SACUBITRIL/VALSARTAN 24 MG-26 MG TABLET PO SCH (09:14)
[2020-08-24] MEDS: PRENATAL VITAMINS W/ FOLIC ACID TABLET (FP) PO SCH (09:14)
[2020-08-24] MEDS: amLODIPine BESYLATE 10 MG TABLET (FP) PO SCH (09:14)
[2020-08-24] MEDS: diazePAM 5 MG TABLET PO PRN ×2 (17:18→22:12)
[2020-08-24] MEDS ORDERED: MASKS NR ONE (20:41)
[2020-08-24] MEDS: THIAMINE HCL 100 MG TABLET (FP) PO SCH (22:09)
[2020-08-24] MEDS: MELATONIN 5 MG TABLETS PO SCH (22:10)
[2020-08-24] MEDS: ROSUVASTATIN CA 20 MG TABLET (FP) PO SCH (22:10)
[2020-08-25] MEDS ORDERED: diazePAM 5 MG TABLET PO ONE (06:00)
[2020-08-25] MEDS: ASPIRIN 81 MG CHEWABLE TABLETS PO SCH (09:03)
[2020-08-25] MEDS: CARVEDILOL 3.125 MG TABLET (FP) PO SCH (09:03)
[2020-08-25] MEDS: amLODIPine BESYLATE 10 MG TABLET (FP) PO SCH (09:03)
[2020-08-25] MEDS: SACUBITRIL/VALSARTAN 24 MG-26 MG TABLET PO SCH (09:04)
[2020-08-25] MEDS: NICOTINE 14 MG/24 HOURS TOPICAL PATCH TD SCH (09:04)
[2020-08-25] MEDS: PRENATAL VITAMINS W/ FOLIC ACID TABLET (FP) PO SCH (09:05)
[2020-08-25] MEDS ORDERED: NICOTINE 21 MG/24 HOURS TOPICAL PATCH TD SCH (10:00)
[2020-08-25] MEDS ORDERED: COVID-19 VAC,AD26(JANSSEN)/PF 0.5 ML IM ONE (13:00)
[2020-08-25 16:58] LABS: HEMATOCRIT 46.1 % (35.4-49); MCH 29.5 pg (25.7-33.7); MCHC 32.6 g/dl (32.0-35.9); MEAN CELL VOLUME 90.5 fl (80-96); MEAN PLT VOLUME 10.6 fl (7.5-11.1); PLATELET COUNT 120 10^3/uL (134-434); RBC 5.09 M/mm3 (4.00-5.60); RDW 14.3 % (11.9-15.9); WHITE BLOOD COUNT 5.3 K/mm3 (4.0-10.0)
[2020-08-25] MEDS ORDERED: CARVEDILOL 3.125 MG TABLET (FP) PO ONE (20:39)
[2020-08-25] MEDS ORDERED: SACUBITRIL/VALSARTAN 24 MG-26 MG TABLET PO SCH (22:00)
[2020-08-25 22:49] VITALS: BP 141/109; PULSE 104; TEMP 97.3
[2020-08-27 12:40] LABS: SARS-CoV-2 NAA NOT DETECTED
== END 2020-08-25 21:00 | disposition home or self-care (01) | DRG 897 ==
LOC: YASAS 19:36 → Y6N 08-22 10:00
PROVIDERS: ADMIT Allergy & Immunology; ATTEND Allergy & Immunology
PROC: HZ2ZZZZ Detoxification Services for Substance Abuse Treatment (ICD-10-PCS; principal; 2020-08-22)
DX: F10.230 Alcohol dependence with withdrawal, uncomplicated (principal); F10.220 Alcohol dependence with intoxication, uncomplicated; F12.20 Cannabis dependence, uncomplicated; F17.210 Nicotine dependence, cigarettes, uncomplicated; F19.24 Other psychoactive substance dependence with psychoactive substance-induced mood disorder; I11.0 Hypertensive heart disease with heart failure; E78.5 Hyperlipidemia, unspecified; I50.9 Heart failure, unspecified; M10.9 Gout, unspecified; I69.344 Monoplegia of lower limb following cerebral infarction affecting left non-dominant side; R00.0 Tachycardia, unspecified; R63.8 Other symptoms and signs concerning food and fluid intake
CPT/HCPCS: 0031A; 36415; 80053; 85027; 86780; 87389; 91303; 93005; 93010; C9803; J0735; U0003; U0005